=== PATIENT | female | born 1980 | race Caucasian/White ===

== ENCOUNTER → 2017-11-02 | Outpatient (CLI) | payer BC ==
[~2017-11-02] VITALS: Ht 165.1 cm; Wt 67.4 kg
[~2017-11-02] MED LIST: ACET300T3 PO; IBUP-1427 PO; PRENTAB26 PO
[2017-11-02 13:42] VITALS: BP 122/76; PULSE 59; Ht 165.1 cm; Wt 67.4 kg
== END | disposition home or self-care (01) ==
LOC: C.NEUR 13:18
PROVIDERS: ATTEND Internal Medicine Pulmonary Disease
DX: G47.19 Other hypersomnia (principal); R53.81 Other malaise; R53.83 Other fatigue; R68.89 Other general symptoms and signs